=== PATIENT | male | born 1945 | race Caucasian/White ===

== ENCOUNTER → 2016-12-02 | Outpatient (CLI) | payer OTHER ==
[2016-12-02 11:25] LABS: BUN/CREATININE RATIO 20 (0-10)
== END ==
LOC: LAB 10:26
PROVIDERS: Internal Medicine
DX: R31.9 Hematuria, unspecified (principal); J30.89 Other allergic rhinitis; E78.00 Pure hypercholesterolemia, unspecified; E53.8 Deficiency of other specified B group vitamins
CPT/HCPCS: 36415; 80053; 80061; 87086